=== PATIENT | male | born 1950 | race Caucasian/White ===

== ENCOUNTER 2016-08-07 08:50 | Day surgery (SDC) | payer MEDICARE, BC ==
[~2016-08-07 08:50] MED LIST: Bacitracin Oint 1 GM U/D Packet ONE; Bupivacaine 0.5%/EPINEPHrine 1:200,000 50 ML MDV ONE; Lidocaine 1% 50 ML MDV ONE
[2016-08-07] MEDS ORDERED: ceFAZolin 2 GM in Premix Bag 1 BAG IV ONE (09:30)
[2016-08-07] MEDS ORDERED: Dextrose 5%-Lactated Ringers 1,000 ML IV SCH (09:30)
[2016-08-07] MEDS ORDERED: Propofol 200 MG/20 ML SDV ONE (10:51)
[2016-08-07] MEDS ORDERED: fentaNYL 100 MCG/2 ML SDV ONE (10:52)
[2016-08-07] MEDS ORDERED: Midazolam 1 MG/ML 2 ML SDV ONE (10:52)
[2016-08-07] MEDS ORDERED: Linezolid 200 MG/100 ML Bag IRR ONE (11:25)
[2016-08-07] MEDS ORDERED: Bacitracin Oint 1 GM U/D Packet ONE (11:37)
[2016-08-07 12:54] VITALS: BP 136/85
--- NOTE | 2016-08-19 07:34 | OR ---
DATE OF PROCEDURE: 08/07/2016 PREOPERATIVE DIAGNOSIS: Malignant melanoma of the left anterior chest wall. POSTOPERATIVE DIAGNOSIS: Malignant melanoma of the left anterior chest wall. OPERATIVE PROCEDURE: Wide excision of malignant melanoma of the left anterior chest wall (55241, [id number]). ANESTHESIA: Local plus IV sedation. INDICATION: This is a 65-year-old presenting with an invasive malignant melanoma with pathologic depth of 0.3 mm. Given this, he should be undergoing a 1 cm excision and this falls short of a lesion which would require a sentinel lymph node biopsy. Potential risks including bleeding, infection, possible local or distant recurrence of the melanoma were reviewed, and the patient wishes to proceed. DETAILS OF PROCEDURE: The patient was taken to the operating room and placed in the supine position. IV sedation was administered, after which the upper chest and shoulder area on the left side was prepped and draped. The previous incision and sutures were still in place. The elliptical incision which actually had a vertical orientation was then marked out maintaining a minimum of 1 cm of margin from the level of the incision in all directions. This area was then anesthetized with 1% lidocaine mixed with Marcaine and a skin incision was made, and this was then carried directly down to and include the muscular fascia, which was then excised off the underlying musculature, removing the disc of the tissue in a complete manner. The margins were oriented for the pathologist and at that point, the wound was inspected and at no point did any plane of excision appear to come close to the previous excision site. The deeper soft tissue was then approximated with some 2-0 Vicryl, then 4-0 Vicryl, and then mya. Dressing was applied. The patient was taken to the recovery room in satisfactory condition. Dirk Kapoor MD /[id number]
== END 2016-08-07 13:15 | disposition home or self-care (01) ==
LOC: JP.SDS 08:50
PROVIDERS: ATTEND Surgery
DX: D23.5 Other benign neoplasm of skin of trunk (principal); I10 Essential (primary) hypertension
CPT/HCPCS: 11406; 12032; 88305; J0690; J2020; J2250; J2704; J3010; J7042